=== PATIENT | female | born 1950 | race Caucasian/White ===

== ENCOUNTER 2021-11-20 11:05 | Outpatient (REF) | payer MEDICARE, SELFPAY ==
[2021-11-20 12:18] LABS: Appearance Urine HAZY; Color Urine YELLOW; Glucose Urine UA NEG (NEG); Leukocyte Esterase Urine 1+ (NEG); Nitrite Urine NEG (NEG); Specific Gravity - Urine >= 1.030 (1.005-1.025); Urine Blood 3+ (NEG); Urine Ketones NEG (NEG); Urine Protein TRACE MG/DL (NEG-TRACE)
[2021-11-20 13:55] LABS: Bacteria Urine 1+ /LPF; Squamous Epithelial Cell Urine 2+ /LPF
[2021-11-20 13:56] LABS: WBC Urine 30-49 /HPF (0-4)
== END 2021-11-20 11:06 | disposition home or self-care (01) ==
LOC: HO.LAB 11:05
PROVIDERS: PCP Family Medicine; Visit Provider Urology
DX: N39.0 Urinary tract infection, site not specified (principal)
CPT/HCPCS: 81001; 87086

== ENCOUNTER → 2022-01-26 09:40 | Outpatient (BNVA) | payer MEDICARE, SELFPAY | PROVIDERS: PCP Family Medicine | DX: N39.0 Urinary tract infection, site not specified (principal); Z87.891 Personal history of nicotine dependence | CPT/HCPCS: Q3014 ==

== ENCOUNTER 2022-03-10 10:31 | Outpatient (REF) | payer MEDICARE, SELFPAY ==
[2022-03-10 14:09] LABS: MANUAL DIFF FLAG NO
[2022-03-10 14:18] LABS: Basophils Absolute Auto 0.1 X10*3/uL (0.0-0.2); Basophils Percent Auto 0.9 % (0-2); Eosinophils Absolute Auto 0.3 X10*3/uL (0.0-0.4); Eosinophils Percent Auto 6.3 % (0-4); Hematocrit 40.6 % (37.0-47.0); Hemoglobin 13.5 g/dl (12.0-16.0); Imm Gran Abs Auto 0.01 X10*3/uL (0.00-0.03); Imm Gran Pct Auto 0.2 % (0.0-0.4); Lymphocytes Absolute Auto 1.5 X10*3/uL (1.2-4.9); Lymphocytes Percent Auto 28.2 % (20-40); Mean Corpuscular HGB Conc 33.3 g/dl (31.0-35.0); Mean Corpuscular Hemoglobin 30.8 pg (27.0-33.0); Mean Corpuscular Volume 92.7 fL (80.0-98.0); Monocytes Absolute Auto 0.5 X10*3/uL (0.1-1.2); Monocytes Percent Auto 9.5 % (2-11); Neutrophils Percent Auto 54.9 % (45-73); Platelet Count 264 X10*3/uL (160-400); Red Blood Count 4.38 X10*6/uL (4.20-5.50); Red Cell Distribution Width 11.9 % (11.0-16.0); White Blood Count 5.4 X10*3/uL (4.8-10.8)
[2022-03-10 14:27] LABS: Appearance Urine Clear; Color Urine Yellow; Glucose Urine UA Negative (Negative); Leukocyte Esterase Urine Small (1+) (Negative); Nitrite Urine Negative (Negative); PH 5.5 (5.0-9.0); Specific Gravity - Urine 1.025 (1.005-1.025); Urine Blood Negative (Negative); Urine Ketones Negative (Negative); Urine Protein Negative (Neg-Trace)
[2022-03-10 14:43] LABS: Alanine Aminotransferase 24 U/L (0-31); Albumin Level 4.5 g/dL (3.5-5.0); Alkaline Phosphatase 68 U/L (39-117); Anion Gap 13 (12-20); Aspartate Amino Transferase 20 U/L (5-31); Bilirubin Total 0.4 mg/dL (0.0-1.0); Blood Urea Nitrogen 24 mg/dL (9-16); Calcium 9.3 mg/dL (8.4-10.2); Carbon Dioxide 26 mmol/L (22-29); Chloride 105 mmol/L (96-108); Cholesterol 248 mg/dL; Estimated Glomerular Filt Rate > 60; Glucose Fasting 103 mg/dL (60-99); HDL Cholesterol 73 mg/dL; LDL Cholesterol Calculated 158 mg/dl; Sodium 140 mmol/L (135-145); Total Protein 6.9 g/dL (6.5-8.0); Triglycerides 88 mg/dL
[2022-03-10 14:44] LABS: Bacteria Urine None Seen (None Seen); Hyaline Casts Urine 0-2 /LPF (0-2); RBC Urine 0-2 /HPF (0-2); Squamous Epithelial Cell Urine 0-2 /HPF (0-2); UACC Culture Trigger YES; WBC Urine 0-5 /HPF (0-5)
[2022-03-10 14:50] LABS: TSH reflex Free T4 0.97 uIU/mL (0.32-4.0)
== END 2022-03-10 10:32 | disposition home or self-care (01) ==
LOC: HO.WFDLDS 10:31
PROVIDERS: Visit Provider Family Medicine
DX: Z00.00 Encounter for general adult medical examination without abnormal findings (principal)
CPT/HCPCS: 36415; 80053; 80061; 81001; 84443; 85025; 87086

== ENCOUNTER 2022-06-30 12:32 | Outpatient (REF) | payer MEDICARE, SELFPAY ==
[2022-06-30 13:25] LABS: Appearance Urine Clear; Color Urine Yellow; Glucose Urine UA Negative (Negative); Leukocyte Esterase Urine Moderate (2+) (Negative); Nitrite Urine Negative (Negative); PH 6.5 (5.0-9.0); UMIC TRIGGER UA YES; Urine Blood Negative (Negative); Urine Ketones Negative (Negative); Urine Protein Negative (Neg-Trace)
[2022-06-30 13:30] LABS: Bacteria Urine None Seen (None Seen); Hyaline Casts Urine 0-2 /LPF (0-2); RBC Urine 0-2 /HPF (0-2); WBC Urine 21-50 /HPF (0-5)
== END 2022-06-30 12:33 | disposition home or self-care (01) ==
LOC: HO.LAB 12:32
PROVIDERS: PCP Family Medicine; Visit Provider Urology
DX: N39.0 Urinary tract infection, site not specified (principal)
CPT/HCPCS: 81001; 87086; 87088; 87186

== ENCOUNTER → 2022-07-28 14:27 | Outpatient (BNVA) | payer MEDICARE, SELFPAY | PROVIDERS: PCP Family Medicine; Visit Provider Nurse Practitioner Family | DX: N39.0 Urinary tract infection, site not specified (principal); U07.0 Vaping-related disorder; Z79.82 Long term (current) use of aspirin | CPT/HCPCS: Q3014 ==

== ENCOUNTER 2022-09-21 07:35 | Outpatient (REF) | payer MEDICARE, SELFPAY ==
[2022-09-21 12:36] LABS: Alanine Aminotransferase 26 U/L (0-31); Albumin Level 4.6 g/dL (3.5-5.0); Alkaline Phosphatase 57 U/L (39-117); Anion Gap 11 (12-20); Aspartate Amino Transferase 24 U/L (5-31); Bilirubin Total 0.5 mg/dL (0.0-1.0); Blood Urea Nitrogen 25 mg/dL (9-16); Calcium 9.2 mg/dL (8.4-10.2); Carbon Dioxide 29 mmol/L (22-29); Chloride 108 mmol/L (96-108); Cholesterol 238 mg/dL; Estimated Glomerular Filt Rate > 60; Glucose Fasting 106 mg/dL (60-99); Glucose Random 105 mg/dL (60-115); HDL Cholesterol 75 mg/dL; LDL Cholesterol Calculated 147 mg/dl; Potassium 4.2 mmol/L (3.3-5.1); Sodium 144 mmol/L (135-145); Total Protein 6.8 g/dL (6.5-8.0); Triglycerides 82 mg/dL
[2022-09-21 12:55] LABS: Free T4 (Free Thyroxine) 1.01 ng/dL (0.71-1.85); Thyroid Stimulating Hormone 1.74 uIU/mL (0.32-4.0)
[2022-09-21 14:07] LABS: Appearance Urine Turbid; Color Urine Yellow; Glucose Urine UA Negative (Negative); Leukocyte Esterase Urine Small (1+) (Negative); Nitrite Urine Negative (Negative); PH 5.5 (5.0-9.0); Specific Gravity - Urine 1.025 (1.005-1.025); UMIC TRIGGER UA YES; Urine Blood Negative (Negative); Urine Ketones Negative (Negative); Urine Protein Negative (Neg-Trace)
[2022-09-21 14:10] LABS: Bacteria Urine None Seen (None Seen); Hyaline Casts Urine 0-2 /LPF (0-2); RBC Urine 0-2 /HPF (0-2)
[2022-09-21 15:01] LABS: Creatinine Urine 117.99 mg/dL; Microalbum/Creatinine Ratio Ur 13.5 ug/mg cr
[2022-09-22 18:59] LABS: Triiodothyronine T3 Total 116 ng/dL (76-181)
== END 2022-09-21 07:36 | disposition home or self-care (01) ==
LOC: HO.WFDLDS 07:35
PROVIDERS: Visit Provider Family Medicine
DX: Z00.00 Encounter for general adult medical examination without abnormal findings (principal); E03.9 Hypothyroidism, unspecified; E05.90 Thyrotoxicosis, unspecified without thyrotoxic crisis or storm; I10 Essential (primary) hypertension; E78.00 Pure hypercholesterolemia, unspecified; R73.01 Impaired fasting glucose
CPT/HCPCS: 36415; 80048; 80053; 80061; 81001; 81003; 82043; 84439; 84443; 84480

== ENCOUNTER → 2022-10-28 14:28 | Outpatient (BNVA) | payer MEDICARE, SELFPAY | PROVIDERS: PCP Family Medicine; Visit Provider Nurse Practitioner Family | DX: N39.0 Urinary tract infection, site not specified (principal); U07.0 Vaping-related disorder; Z87.891 Personal history of nicotine dependence | CPT/HCPCS: 51798; 99212 ==

== ENCOUNTER 2023-05-14 14:17 | Outpatient (REF) | payer MEDICARE, SELFPAY ==
--- NOTE | ~2023-05-14 | US_ITS ---
EXAMINATION: US RETROPERITONEAL LIMITED (RENAL ONLY) CLINICAL INFORMATION: Urinary tract infection, site not specified. COMPARISON: Ultrasound retroperitoneal complete (renal) 05/23/2018. TECHNIQUE: Real-time imaging of the kidneys. FINDINGS: RIGHT KIDNEY: 11.8 x 4.8 x 4.7 cm (SAG x AP x TRV). The kidney is normal in size, contour, and echogenicity. Renal cortical thickness is normal. No renal calculi or hydronephrosis. Benign-appearing renal cyst measuring 0.8 cm. No follow up imaging is recommended. LEFT KIDNEY: 11.3 x 5.7 x 4.5 cm (SAG x AP x TRV). The kidney is normal in size, contour, and echogenicity. Renal cortical thickness is normal. No renal calculi or hydronephrosis. Benign-appearing renal cyst measuring 1 cm. No follow up imaging is recommended. BLADDER: Bladder is decompressed. US/US renal BI IMPRESSION: 1. Unremarkable sonographic appearance of the kidneys. 2. Bladder is decompressed limiting evaluation.
== END 2023-05-14 14:18 | disposition home or self-care (01) ==
LOC: HO.US 14:17
PROVIDERS: PCP Family Medicine; Visit Provider Nurse Practitioner Family
DX: N39.0 Urinary tract infection, site not specified (principal)
CPT/HCPCS: 76775

== ENCOUNTER 2023-05-25 15:26 | Outpatient (REF) | payer MEDICARE, SELFPAY ==
--- NOTE | ~2023-05-25 | US_ITS ---
EXAMINATION: US PELVIS LIMITED (BLADDER) CLINICAL INFORMATION: Urinary tract infection, site not specified. Recurrent urinary tract infection. COMPARISON: Ultrasound kidneys and bladder 05/23/2018. TECHNIQUE: Real-time imaging of the bladder. FINDINGS: BLADDER: Partially distended. Bilateral ureteral jets are demonstrated. Prevoid bladder volume is 105 mL. Postvoid bladder volume was not obtained. US/US bladder IMPRESSION: Unremarkable bladder.
== END 2023-05-25 15:27 | disposition home or self-care (01) ==
LOC: HO.US 15:26
PROVIDERS: PCP Family Medicine; Visit Provider Nurse Practitioner Family
DX: N39.0 Urinary tract infection, site not specified (principal)
CPT/HCPCS: 76857

== ENCOUNTER 2023-06-01 14:36 | Outpatient (AMB) | payer MEDICARE, SELFPAY ==
--- NOTE | 2023-06-01 14:40 | A.OFFVIS_ITS ---
Intake Intake Visit Reasons: 6m/US/PVR(set) Intake Note: Patient is present for follow up PVR/recurrent uti (last uti late december)/ultrasound (imaging 05/14/23 & 05/25/23) Urology Medications: none Blood Thinner: none PVR: 0ml's Manager Video Games Required: No Accompanied by: Self / Same As Patient Allergies cat dander Adverse Reaction (Intermediate, Verified 06/01/23 14:50) Nasal Discharge Latex Allergy (Unknown, Uncoded 06/01/23 14:50) rash Medication List - Last Reconciled 06/01/23 by DARIO Álvarez aspirin (Adult Aspirin Regimen) 81 mg PO DAILY cholecalciferol (vitamin D3) 50 mcg PO DAILY methimazole 2.5 mg PO DAILY HPI HPI Comments History of Present Illness Details Niurka is a pleasant 73-year-old female patient of Dr.Grazi nieto. She presents to the office today for follow-up of her recurrent urinary tract infections. Recent retroperitoneal ultrasound results reviewed with the patient today. Bilateral kidneys with no hydronephrosis or calculi. Benign appearing renal cysts bilaterally measuring 1 cm. No follow-up imaging is recommended per radiology report. The bladder is partially distended. Bilateral ureteral jets are demonstrated. Pre void bladder volume is approximately 100 mL. Postvoid bladder volume was not obtained. In discussion with the patient today she reports to be doing and feeling well. She reports noting LEs UTI like symptoms since increasing her water intake. She reports since her last office visit here approximately 6 months ago she had approximately 2 urinary tract infections. However, she currently denies any UTI like symptoms or bothersome urinary issues or concerns at this time. She reports compliance with Julva cream as prescribed. When asked she denies urinary urgency, urinary frequency, incontinence, nocturia, hematuria, dysuria, foul smelling urine, changes to urinary stream, flank pain, fever, and or chills. She denies having any issues with constipation. In office urinalysis results reviewed with the patient today. PVR 0ml's. 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 Cognitive needs: No Hearing needs: No Vision needs: No Review of Systems Const All systems reviewed & are unremarkable except as noted in HPI and below Reports no additional complaints Eyes Reports no additional complaints ENT Reports no additional complaints Card Reports no additional complaints Resp Reports no additional complaints GI Reports no additional complaints Reports as per HPI Musc Reports no additional complaints Neuro Reports no additional complaints Psych Reports no additional complaints Endo Reports no additional complaints Physical Exam Const General: cooperative, healthy appearing, comfortable, no acute distress, well developed, alert and awake Orientation/consciousness: patient oriented x3 Limitations: no limitations HEENT Head: Yes normal to inspection, Yes normocephalic and Yes atraumatic Ears: hearing grossly normal bilaterally Eyes General: appearance normal, both eyes and all related structures Neck Neck: Yes normal visual inspection and Yes trachea midline Chest Chest palpation & inspection: normal inspection of the chest Resp Effort & Inspection: normal respiratory effort and able to speak in complete sentences Cardio Rate: regular rate GI Inspection: Yes normal to inspection General: Yes no CVA tenderness Back/Spine/Pelvis Back: no CVA tenderness Skin General skin exam: no rashes or lesions noted Neuro General: patient oriented x3 Extrem General: Yes normal to inspection Psych Appearance: grossly normal and well kempt Mental Status: mental status grossly normal Speech and movement: Normal speech and movement present and Clear speech present Affect: normal affect Attitude: cooperative Thought process: Normal thought process present Thought content: Normal thought content present Insight: Good insight present (Psych) Judgement: Good judgement present (Psych) Office Procedures Post Void Residual Post Residual Void Post Void Residual (PVR): 0 33117-[id number] Void Residual by ultrasound Results AMB Urinalysis, Automated UA Leukoctes 0 Lili/uL Last Edit by Adolfo Tucker on 06/01/23 15:01 UA Nitrite Negative Last Edit by Adolfo Tucker on 06/01/23 15:01 UA Urobilinogen 0.2 mg/dL Last Edit by Adolfo Tucker on 06/01/23 15:01 UA Protein 15 mg/dL Last Edit by Adolfo Tucker on 06/01/23 15:01 UA pH 6.0 Last Edit by Adolfo uTcker on 06/01/23 15:01 UA Blood 0 Talib/uL Last Edit by Adolfo Tucker on 06/01/23 15:01 UA Specific [place] 1.030 Last Edit by Adolfo Tucker on 06/01/23 15:01 UA Ketone Negative Last Edit by Adolfo Tucker on 06/01/23 15:01 UA Bilirubin 0 mg/dL Last Edit by Adolfo Tucker on 06/01/23 15:01 UA Glucose 0 mg/dL Last Edit by Adolfo Tucker on 06/01/23 15:01 Results Reviewed Results Reviewed: Laboratory Last Values Urine pH (Auto) 6.0 06/01/23 14:42 Specific [place] (Auto) 1.030 06/01/23 14:42 Urine Protein (Auto) 15 mg/dL 06/01/23 14:42 Glucose (UA)(Auto) 0 mg/dL 06/01/23 14:42 Urine Ketones (Auto) Negative 06/01/23 14:42 Urine Blood (Auto) 0 Talib/uL 06/01/23 14:42 Urine Nitrite (Auto) Negative 06/01/23 14:42 Urine Bilirubin (Auto) 0 mg/dL 06/01/23 14:42 Urine Urobilinogen (Auto) 0.2 mg/dL 06/01/23 14:42 Leukocyte Esterase (Auto) 0 Lili/uL 06/01/23 14:42 Date of Service: 05/14/23 EXAMINATION: US RETROPERITONEAL LIMITED (RENAL ONLY) FINDINGS: RIGHT KIDNEY: 11.8 x 4.8 x 4.7 cm (SAG x AP x TRV). The kidney is normal in size, contour, and echogenicity. Renal cortical thickness is normal. No renal calculi or hydronephrosis. Benign-appearing renal cyst measuring 0.8 cm. No follow up imaging is recommended. LEFT KIDNEY: 11.3 x 5.7 x 4.5 cm (SAG x AP x TRV). The kidney is normal in size, contour, and echogenicity. Renal cortical thickness is normal. No renal calculi or hydronephrosis. Benign-appearing renal cyst measuring 1 cm. No follow up imaging is recommended. BLADDER: Bladder is decompressed. IMPRESSION: 1. Unremarkable sonographic appearance of the kidneys. 2. Bladder is decompressed limiting evaluation. Date of Service: 05/25/23 EXAMINATION: US PELVIS LIMITED (BLADDER) CLINICAL INFORMATION: Urinary tract infection, site not specified. Recurrent urinary tract infection. COMPARISON: Ultrasound kidneys and bladder 05/23/2018. TECHNIQUE: Real-time imaging of the bladder. FINDINGS: BLADDER: Partially distended. Bilateral ureteral jets are demonstrated. Prevoid bladder volume is 105 mL. Postvoid bladder volume was not obtained. IMPRESSION: Unremarkable bladder. Assessment & Plan Assessment & Plan (1) Recurrent UTI: Code(s): N39.0 - Urinary tract infection, site not specified (2) Renal cyst: Code(s): N28.1 - Cyst of kidney, acquired Plan In office urinalysis results reviewed with the patient today; as noted above PVR 0 mL Recent retroperitoneal ultrasound results reviewed with the patient today; as noted above Continue Julva cream as discussed and prescribed. Discussed UTI prevention with D mannose supplement, vitamin-C, increasing fluid intake, behavioral therapy with timed voiding, perineal hygiene and postcoital voiding, and management of constipation with stool softeners and increased fiber intake. Prescription provided Follow-up in 6 months with PVR; or sooner with any issues, concerns, and or questions. Orders: Orders AMB Urinalysis Automated Today Z13.9 - Encounter for screening, unspecified AMB Post Void Residual by ultrasound Today N39.0 - Urinary tract infection, site not specified Medications: New sulfamethoxazole-trimethoprim 800-160 mg (Bactrim DS) 1 tab PO BID 14 days 28 tabs 0RF N39.0 - Urinary tract infection, site not specified Patient Instructions: The patient had an opportunity to ask questions regarding the treatment plan. All questions were answered. Physical exam, labs, and imaging were discussed and reviewed in detail. As well as risks, benefits, and discussion of treatment choices. No major barriers to understanding were identified. The patient expressed understanding and agreement with the above treatment plan. The patient was made aware they should contact our office by phone for worsening of their current condition, the appearance of new symptoms, or with any questions or concerns. Compliance is encouraged with any medications and follow up testing that is ordered. It is a privilege to be allowed the opportunity to participate in? your urological care.? Again, if you have any questions or concerns If you have any questions or concerns please do not hesitate to contact me. The office is [phone]. This note is constructed using voice recognition software. While every effort has been made to ensure accuracy director on air errors may have been included. Yours sincerely, DARIO Álvarez Coding Level of Care Code Est Pt Level 4 (17409) Diagnoses Recurrent UTI N39.0 Renal cyst N28.1 CPT Codes Post Residual Void - PVR CPT Code: 96170-Kpow Void Residual by ultrasound ([id number])
== END 2023-06-01 15:30 | disposition home or self-care (01) ==
PROVIDERS: Visit Provider Nurse Practitioner Family
DX: N39.0 Urinary tract infection, site not specified (principal); N28.1 Cyst of kidney, acquired; Z13.9 Encounter for screening, unspecified
CPT/HCPCS: 99214

== ENCOUNTER → 2023-06-01 14:36 | Outpatient (BNVA) | payer MEDICARE, SELFPAY | PROVIDERS: Visit Provider Nurse Practitioner Family | DX: N39.0 Urinary tract infection, site not specified (principal); N28.1 Cyst of kidney, acquired | CPT/HCPCS: 51798; 81003; 99212 ==

== ENCOUNTER 2023-11-30 10:32 | Outpatient (AMB) | payer MEDICARE, SELFPAY ==
--- NOTE | 2023-11-30 10:38 | MHC.OFFVIS ---
Intake Visit Reasons: 6m/PVR Intake Note: Patient is present for follow up PVR/recurrent uti Urology Medications: none Blood Thinner: none PVR: 0ml's Reel Cart Operator Required: No Accompanied by: Self / Same As Patient Allergies cat dander Adverse Reaction (Intermediate, Verified 11/30/23 11:12) Nasal Discharge Latex Allergy (Unknown, Uncoded 11/30/23 11:12) rash Medication List - Last Reconciled 11/30/23 by SIM ÁlvarezP- aspirin (Adult Aspirin Regimen) 81 mg PO DAILY cholecalciferol (vitamin D3) 50 mcg PO DAILY methimazole 2.5 mg PO DAILY sulfamethoxazole-trimethoprim 800-160 mg (Bactrim DS) 1 tab PO BID 14 days HPI Comments Details: Niurka is a pleasant 73-year-old female patient of . She has a past medical history of breast cancer. She presents to the office today for follow-up of her recurrent urinary tract infections. In discussion with the patient today she reports since her last office visit here approximately 6 months ago she has since had 2 urinary tract infections. She discusses her most recent urinary tract infection was approximately 2-4 weeks ago. She reports having completed antibiotic therapy as prescribed. Discussed and stressed the importance of obtaining urine sample prior to initiation of antibiotic therapy. In office urinalysis results reviewed with the patient today. PVR 0 mL. Patient currently denies any bothersome urinary issues or concerns. She denies urinary urgency, urinary frequency, incontinence, nocturia, hematuria, dysuria, foul smelling urine, changes to urinary stream, flank pain, fever, and or chills. Previous workup has included a retroperitoneal ultrasound noting bilateral kidneys with no hydronephrosis or calculi. Benign appearing renal cysts bilaterally measuring 1 cm. No follow-up imaging is recommended per radiology report. The bladder is partially distended. Bilateral ureteral jets are demonstrated. Pre void bladder volume is approximately 100 mL. Postvoid bladder volume was not obtained. She discusses having increased her water consumption and feels this has been helpful. She reports compliance with Julva cream as prescribed. She is happy with her current voiding parameters. She denies having any issues with constipation. She discusses her upcoming appointment with her oncologist in January and will discuss potential for Estrace cream in the setting of recurrent urinary tract infections. She otherwise offers no other issues or concerns at this time. 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 Cognitive needs: No Hearing needs: No Vision needs: No Review of Systems Const All systems reviewed & are unremarkable except as noted in HPI and below Reports no additional complaints Eyes Reports no additional complaints ENT Reports no additional complaints Card Reports no additional complaints Resp Reports no additional complaints GI Reports no additional complaints Reports as per HPI Musc Reports no additional complaints Neuro Reports no additional complaints Psych Reports no additional complaints Endo Reports no additional complaints Physical Exam Const General: cooperative, healthy appearing, comfortable, no acute distress, well developed, alert and awake Orientation/consciousness: patient oriented x3 Limitations: no limitations HEENT Head: Yes normal to inspection, Yes normocephalic and Yes atraumatic Ears: hearing grossly normal bilaterally Eyes General: appearance normal, both eyes and all related structures Neck Neck: Yes normal visual inspection and Yes trachea midline Chest Chest palpation & inspection: normal inspection of the chest Resp Effort & Inspection: normal respiratory effort and able to speak in complete sentences Cardio Rate: regular rate GI Inspection: Yes normal to inspection General: Yes no CVA tenderness Back/Spine/Pelvis Back: no CVA tenderness Skin General skin exam: no rashes or lesions noted Neuro General: patient oriented x3 Extrem General: Yes normal to inspection Psych Appearance: grossly normal and well kempt Mental Status: mental status grossly normal Speech and movement: Normal speech and movement present and Clear speech present Affect: normal affect Attitude: cooperative Thought process: Normal thought process present Thought content: Normal thought content present Insight: Fair insight present (Psych) Judgement: Fair judgement present (Psych) Results AMB Urinalysis, Automated UA Leukoctes 15 Lili/uL Last Edit by Adolfo Tucker on 11/30/23 11:01 UA Nitrite Negative Last Edit by Adolfo Tucker on 11/30/23 11:01 UA Urobilinogen 0.2 mg/dL Last Edit by Adolfo Maritamarilyn on 11/30/23 11:01 UA Protein 15 mg/dL Last Edit by Adolfo Tucker on 11/30/23 11:01 UA pH 6.5 Last Edit by Adolfo Tucker on 11/30/23 11:01 UA Blood 0 Talib/uL Last Edit by Adolfo Tucker on 11/30/23 11:01 UA Specific [place] 1.010 Last Edit by Adolfo Tucker on 11/30/23 11:01 UA Ketone Negative Last Edit by Adolfo Tucker on 11/30/23 11:01 UA Bilirubin 0 mg/dL Last Edit by Adolfo Tucker on 11/30/23 11:01 UA Glucose 0 mg/dL Last Edit by Adolfo Tucker on 11/30/23 11:01 Results Reviewed Results Reviewed: Laboratory Last Values Urine pH (Auto) 6.5 11/30/23 11:00 Specific [place] (Auto) 1.010 11/30/23 11:00 Urine Protein (Auto) 15 mg/dL 11/30/23 11:00 Glucose (UA)(Auto) 0 mg/dL 11/30/23 11:00 Urine Ketones (Auto) Negative 11/30/23 11:00 Urine Blood (Auto) 0 Talib/uL 11/30/23 11:00 Urine Nitrite (Auto) Negative 11/30/23 11:00 Urine Bilirubin (Auto) 0 mg/dL 11/30/23 11:00 Urine Urobilinogen (Auto) 0.2 mg/dL 11/30/23 11:00 Leukocyte Esterase (Auto) 15 Lili/uL 11/30/23 11:00 Assessment & Plan Assessment & Plan (1) Recurrent UTI: Code(s): N39.0 - Urinary tract infection, site not specified Category: Medical Plan In office urinalysis results reviewed with the patient today; as noted above. PVR 0 mL. Discussed, educated, and stressed the importance of obtaining urinalysis prior to initiation of antibiotic therapy. Patient will discuss Estrace cream at scheduled follow-up with oncologist in January. Continue Julva cream Discussed UTI prevention with D mannose supplement, vitamin-C, increasing fluid intake, behavioral therapy with timed voiding, perineal hygiene and postcoital voiding, and management of constipation with stool softeners and increased fiber intake. Discussed at length potential causes of recurrent urinary tract infections. Follow-up in 6 months with PVR; or sooner with any issues, concerns, and or questions. Orders: Orders AMB Urinalysis Automated Today Z13.9 - Encounter for screening, unspecified Medications: Refilled sulfamethoxazole-trimethoprim 800-160 mg (Bactrim DS) 1 tab PO BID 14 days 28 tabs 0RF N39.0 - Urinary tract infection, site not specified Patient Instructions: The patient had an opportunity to ask questions regarding the treatment plan. All questions were answered. Physical exam, labs, and imaging were discussed and reviewed in detail. As well as risks, benefits, and discussion of treatment choices. No major barriers to understanding were identified. The patient expressed understanding and agreement with the above treatment plan. The patient was made aware they should contact our office by phone for worsening of their current condition, the appearance of new symptoms, or with any questions or concerns. Compliance is encouraged with any medications and follow up testing that is ordered. It is a privilege to be allowed the opportunity to participate in? your urological care.? Again, if you have any questions or concerns If you have any questions or concerns please do not hesitate to contact me. The office is [phone]. This note is constructed using voice recognition software. While every effort has been made to ensure accuracy heel varnisher errors may have been included. Yours sincerely, DARIO Álvarez Coding Level of Care Code Est Pt Level 4 (57630) Diagnoses Recurrent UTI N39.0
== END 2023-11-30 11:14 | disposition home or self-care (01) ==
PROVIDERS: PCP Family Medicine; Visit Provider Nurse Practitioner Family
DX: N39.0 Urinary tract infection, site not specified (principal); Z13.9 Encounter for screening, unspecified
CPT/HCPCS: 99214

== ENCOUNTER → 2023-11-30 10:32 | Outpatient (BNVA) | payer MEDICARE, SELFPAY | PROVIDERS: PCP Family Medicine; Visit Provider Nurse Practitioner Family | DX: N39.0 Urinary tract infection, site not specified (principal) | CPT/HCPCS: 81003; 99212 ==

== ENCOUNTER 2024-11-21 11:26 | Outpatient (AMB) | payer MEDICARE, SELFPAY ==
--- NOTE | 2024-11-21 11:41 | A.OFFVIS_ITS ---
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 Kate. She has a past medical history of breast cancer. She presents to the office today for follow-up of her recurrent urinary tract infections. In discussion with the patient today she reports having had 1 urinary tract infections since her last office visit here approximately 1 year ago. In office urinalysis results reviewed with the patient today. PVR 16 mL. Patient currently denies any bothersome urinary issues or concerns. She denies urinary urgency, urinary frequency, incontinence, nocturia, hematuria, dysuria, foul smelling urine, changes to urinary stream, flank pain, fever, and or chills. Previous workup has included a retroperitoneal ultrasound 06/03 noting bilateral kidneys with no hydronephrosis or calculi. Benign appearing renal cysts bilaterally measuring 1 cm. No follow-up imaging is recommended per radiology report. The bladder is partially distended. Bilateral ureteral jets are demonstrated. Pre void bladder volume is approximately 100 mL. Postvoid bladder volume was not obtained. She discusses having increased her water consumption and feels this has been helpful. She reports compliance with Julva cream as prescribed. She is happy with her current voiding parameters. She denies having any issues with constipation. She otherwise offers no other issues or concerns at this time. 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 Cognitive needs: No Hearing needs: No Vision needs: No Review of Systems Const All systems reviewed & are unremarkable except as noted in HPI and below Reports no additional complaints Eyes Reports no additional complaints ENT Reports no additional complaints Card Reports no additional complaints Resp Reports no additional complaints GI Reports no additional complaints Reports as per HPI Musc Reports no additional complaints Neuro Reports no additional complaints Psych Reports no additional complaints Endo Reports no additional complaints Physical Exam Const General: cooperative, healthy appearing, comfortable, no acute distress, well developed, alert and awake Orientation/consciousness: patient oriented x3 Limitations: no limitations HEENT Head: Yes normal to inspection, Yes normocephalic and Yes atraumatic Ears: hearing grossly normal bilaterally Eyes General: appearance normal, both eyes and all related structures Neck Neck: Yes normal visual inspection and Yes trachea midline Chest Chest palpation & inspection: normal inspection of the chest Resp Effort & Inspection: normal respiratory effort and able to speak in complete sentences Cardio Rate: regular rate GI Inspection: Yes normal to inspection General: Yes no CVA tenderness Back/Spine/Pelvis Back: no CVA tenderness Skin General skin exam: no rashes or lesions noted Neuro General: patient oriented x3 Extrem General: Yes normal to inspection Psych Appearance: grossly normal and well kempt Mental Status: mental status grossly normal Speech and movement: Normal speech and movement present and Clear speech present Affect: normal affect Attitude: cooperative Thought process: Normal thought process present Thought content: Normal thought content present Insight: Fair insight present (Psych) Judgement: Fair judgement present (Psych) Office Procedures Post Void Residual Post Residual Void Post Void Residual (PVR): 16 [id number] Void Residual by ultrasound Results AMB Urinalysis, Automated UA Leukoctes 70 Lili/uL Last Edit by Adolfo Tucker on 11/21/24 12:11 UA Nitrite Last Edit by Elderyce Maritass on 11/21/24 12:11 UA Urobilinogen 0.2 mg/dL Last Edit by Lelayce Bress on 11/21/24 12:11 UA Protein 0 mg/dL Last Edit by Brandyce Bress on 11/21/24 12:11 UA pH 6.0 Last Edit by Lelayce Bress on 11/21/24 12:11 UA Blood 0 Talib/uL Last Edit by Lelayce Bress on 11/21/24 12:11 UA Specific [place] 1.025 Last Edit by Lelayce Bremarilyn on 11/21/24 12:11 UA Ketone Last Edit by Lelayce Cenifymarilyn on 11/21/24 12:11 UA Bilirubin 0 mg/dL Last Edit by IBN Mediagisselle Cenifymarilyn on 11/21/24 12:11 UA Glucose 0 mg/dL Last Edit by IBN Mediagisselle Cenifymarilyn on 11/21/24 12:11 Results Reviewed Results Reviewed: Laboratory Last Values Urine pH (Auto) 6.0 11/21/24 11:44 Specific [place] (Auto) 1.025 11/21/24 11:44 Urine Protein (Auto) 0 mg/dL 11/21/24 11:44 Glucose (UA)(Auto) 0 mg/dL 11/21/24 11:44 Urine Blood (Auto) 0 Talib/uL 11/21/24 11:44 Urine Bilirubin (Auto) 0 mg/dL 11/21/24 11:44 Urine Urobilinogen (Auto) 0.2 mg/dL 11/21/24 11:44 Leukocyte Esterase (Auto) 70 Lili/uL 11/21/24 11:44 Assessment & Plan Assessment & Plan (1) Renal cyst: Code(s): N28.1 - Cyst of kidney, acquired Category: Medical (2) Recurrent UTI: Code(s): N39.0 - Urinary tract infection, site not specified Category: Medical Plan In office urinalysis results with the patient today; as noted above. PVR 16 mL. She currently denies any bothersome urinary issues or concerns. She reports be happy with current voiding parameters. Discussed, educated and stressed the importance of continuing to drink plenty of water daily in relation to recurrent urinary tract infections as well as overall health and well-being. Discussed, educated, and stressed the importance of obtaining urinalysis prior to initiation of antibiotic therapy. Continue Julva cream Discussed UTI prevention with D mannose supplement, vitamin-C, increasing fluid intake, behavioral therapy with timed voiding, perineal hygiene and postcoital voiding, and management of constipation with stool softeners and increased fiber intake. Follow-up in 1 year with PVR; or sooner with any issues, concerns, and or questions. Orders: Orders AMB Urinalysis Automated Today Z13.9 - Encounter for screening, unspecified AMB Post Void Residual by ultrasound Today N39.0 - Urinary tract infection, site not specified Medications: Refilled sulfamethoxazole-trimethoprim 800-160 mg (Bactrim DS) 1 tab PO BID 14 days 28 tabs 0RF N39.0 - Urinary tract infection, site not specified Patient Instructions: The patient had an opportunity to ask questions regarding the treatment plan. All questions were answered. Physical exam, labs, and imaging were discussed and reviewed in detail. As well as risks, benefits, and discussion of treatment choices. No major barriers to understanding were identified. The patient expressed understanding and agreement with the above treatment plan. The patient was made aware they should contact our office by phone for worsening of their current condition, the appearance of new symptoms, or with any questions or concerns. Compliance is encouraged with any medications and follow up testing that is ordered. It is a privilege to be allowed the opportunity to participate in? your urological care.? Again, if you have any questions or concerns If you have any questions or concerns please do not hesitate to contact me. The office is [phone]. This note is constructed using voice recognition software. While every effort has been made to ensure accuracy space and missile defense operations errors may have been included. Yours sincerely, DARIO Álvarez Coding Level of Care Code Est Pt Level 4 (29620) Complex EM visit Add On G2211 Diagnoses Renal cyst N28.1 Recurrent UTI N39.0 CPT Codes Post Residual Void - PVR CPT Code: 17107-Irsp Void Residual by ultrasound ([id number])
== END 2024-11-21 12:19 | disposition home or self-care (01) ==
LOC: HO.HUSH 11:27
PROVIDERS: PCP Family Medicine; Visit Provider Nurse Practitioner Family
DX: N28.1 Cyst of kidney, acquired (principal); N39.0 Urinary tract infection, site not specified; Z13.9 Encounter for screening, unspecified
CPT/HCPCS: 99214; G2211

== ENCOUNTER → 2024-11-21 11:26 | Outpatient (BNVA) | payer MEDICARE, SELFPAY | PROVIDERS: PCP Family Medicine; Visit Provider Nurse Practitioner Family | DX: N28.1 Cyst of kidney, acquired (principal); N39.0 Urinary tract infection, site not specified | CPT/HCPCS: 51798; 81003; 99212 ==